=== PATIENT | female | born 1990 | race Caucasian/White ===

== ENCOUNTER 2017-10-29 02:22 | Emergency (ER) | payer OTHER ==
[~2017-10-29] VITALS: Ht 170.2 cm; Wt 80.4 kg
[~2017-10-29 02:22] MED LIST: birth control pill
[2017-10-29] MEDS ORDERED: PRENATAL 19 TA1 EACH PO (02:34)
[2017-10-29] MEDS ORDERED: CALCIUM500 M1 PO (02:34)
[2017-10-29 05:20] VITALS: BP 100/60
== END 2017-10-29 05:20 | disposition home or self-care (01) ==
LOC: ED 02:22
DX: O99.282 Endocrine, nutritional and metabolic diseases complicating pregnancy, second trimester (principal); E86.9 Volume depletion, unspecified; O99.712 Diseases of the skin and subcutaneous tissue complicating pregnancy, second trimester; L55.0 Sunburn of first degree; Z3A.21 21 weeks gestation of pregnancy
CPT/HCPCS: J7030

== ENCOUNTER → 2019-05-21 | Outpatient (CLI) | payer BC ==
[~2019-05-21] VITALS: Ht 170.2 cm; Wt 80.4 kg
[~2019-05-21] MED LIST changes: +CALCIUM500 M1 PO; +PRENATAL 19 TA1 EACH PO; +TESSALON PERLE100 M1 PO; +TYLENOL EXTRA500 M2 PO
[2019-05-21 11:05] VITALS: BP 98/65
[2019-05-21 11:22] LABS: HEMATOCRIT 40.1 % (37.0-47.0); HEMOGLOBIN 12.8 g/dL (12.5-16.0); MEAN PLATELET VOLUME 10.1 fl (7.4-10.4); RED BLOOD COUNT 4.9 M/mm3 (4.10-5.30); RED CELL DISTRIBUTION WIDTH 14.6 % (11.5-14.5); WHITE BLOOD COUNT 4.1 K/mm3 (4.8-10.8)
[2019-05-21 11:31] LABS: ALBUMIN 4.3 g/dL (3.5-5.0); POTASSIUM 3.8 mmol/L (3.5-5.1)
[2019-05-21 11:32] LABS: CALCIUM 8.6 mg/dL (8.3-10.5)
[2019-05-21 11:33] LABS: TOTAL PROTEIN 7.6 g/dL (6.4-8.3)
[2019-05-21 11:35] LABS: TOTAL BILIRUBIN 0.3 mg/dL (0.2-1.2)
[2019-05-21 12:14] VITALS: BP 100/65
--- NOTE | 2019-05-21 12:14 | NUR ---
PT WAS HERE OUTPT FOR IV FLUIDS AND ZOFRAN 4MG OTD. PT DENIES ANY VOMITING OR FEVERS. PAST MEDICAL HX OBTAINED. INT STARTED IN LEFT AC WITH A 20 G. LAB WAS DRAWN BY THIS NURSE WHEN INT WAS STARTED. AFTER NS BOULS COMPLETED, INT WAS REMOVED AND DRESSING APPIED. PT WAS INSTRUCTED TO HOME CARE AND TO HEDIS SPECIALIST MEDICATION AT [facility], PT STATES UNDERSTANDING. PT DISCHARGE TO HOME WITH SPOUSE AT HER SIDE.
== END ==
LOC: AMSURD 10:48
PROVIDERS: Nurse Practitioner Family
DX: Z51.81 Encounter for therapeutic drug level monitoring (principal); Z79.899 Other long term (current) drug therapy
CPT/HCPCS: J7030

== ENCOUNTER 2023-02-04 11:28 | Emergency (ER) | payer OTHER ==
[~2023-02-04] VITALS: Ht 170.2 cm; Wt 81.8 kg
[2023-02-04] MEDS ORDERED: VITAMIN B6100 MG/2.5 PO (11:35)
[2023-02-04] MEDS ORDERED: FEOSOL325 MG PO (11:36)
[2023-02-04] MEDS ORDERED: BENADRYL (11:37)
[2023-02-04] MEDS ORDERED: UNISOM25 MG PO (11:37)
[2023-02-04] MEDS ORDERED: PROMETHAZINE12.5 M5 (11:38)
[2023-02-04 12:20] LABS: HEMATOCRIT 33.3 % (37.0-47.0); HEMOGLOBIN 10.8 g/dL (12.5-16.0); MEAN CELL VOLUME 81 fl (78-100); MEAN CORPUSCULAR HEMOGLOBIN 26 pg (27-31); MEAN CORPUSCULAR HGB CONC 32 g/dL (33-37); MEAN PLATELET VOLUME 10.1 fl (7.4-10.4); PLATELET COUNT 224 K/mm3 (130-400); RED BLOOD COUNT 4.09 M/mm3 (4.10-5.30); RED CELL DISTRIBUTION WIDTH 14.2 % (11.5-14.5); WHITE BLOOD COUNT 8.1 K/mm3 (4.8-10.8)
[2023-02-04 12:27] LABS: ALBUMIN 3.9 g/dL (3.5-5.0); POTASSIUM 3.4 mmol/L (3.5-5.1)
[2023-02-04 12:29] LABS: CALCIUM 8.9 mg/dL (8.3-10.5)
[2023-02-04 12:30] LABS: BAND 3 % (0-10); LYMPHOCYTE 9 % (20-51); MONOCYTE 5 % (3-10); NEUTROPHILS 83 % (42-75); TOTAL PROTEIN 6.5 g/dL (6.4-8.3)
[2023-02-04 12:32] LABS: TOTAL BILIRUBIN 0.5 mg/dL (0.2-1.2)
[2023-02-04 13:06] LABS: URINE COLOR YELLOW
[2023-02-04 13:07] LABS: URINE APPEARANCE CLEAR; URINE BILIRUBIN NEGATIVE (NEGATIVE); URINE BLOOD NEGATIVE (NEGATIVE); URINE GLUCOSE NEGATIVE (NEGATIVE); URINE KETONE NEGATIVE (NEGATIVE); URINE LEUKOCYTE ESTERASE NEGATIVE (NEGATIVE); URINE MUCUS PRESENT (NOT PRESENT); URINE NITRATE NEGATIVE (NEGATIVE); URINE PROTEIN(semi-quant) TRACE (NEGATIVE); URINE UROBILINOGEN NORMAL (NORMAL); URINE WBC 0-1 /hpf (0-3)
[2023-02-04 15:33] VITALS: BP 106/73
== END 2023-02-04 15:30 ==
LOC: ED 11:28
PROVIDERS: Family Medicine
DX: O26.51 Maternal hypotension syndrome, first trimester (principal); O26.811 Pregnancy related exhaustion and fatigue, first trimester; Z28.310 Unvaccinated for COVID-19; Z3A.12 12 weeks gestation of pregnancy
CPT/HCPCS: J7030

== ENCOUNTER 2024-06-12 08:24 | Emergency (ER) | payer OTHER ==
[~2024-06-12] VITALS: Ht 170.2 cm; Wt 77.3 kg
[~2024-06-12 08:24] MED LIST changes: +BENADRYL; +FEOSOL325 MG PO; +PROMETHAZINE12.5 M5; +UNISOM25 MG PO; +VITAMIN B6100 MG/2.5 PO
[2024-06-12] MEDS ORDERED: ALBUTEROL2.5 MG/3 M IH (08:34)
[2024-06-12] MEDS ORDERED: CEFDINIR300 MG PO ×2 (08:34→11:41)
[2024-06-12 09:02] LABS: BASO # 0.03 K/mm3 (0.02-0.10); EOS % 0.9 % (1.0-5.0); HEMOGLOBIN 12.9 g/dL (12.5-16.0); LYMPH# 2.13 K/mm3 (1.50-4.00); MEAN CELL VOLUME 86 fl (78-100); MEAN CORPUSCULAR HEMOGLOBIN 28 pg (27-31); MEAN CORPUSCULAR HGB CONC 32 g/dL (33-37); MEAN PLATELET VOLUME 9.6 fl (7.4-10.4); MONO # 0.67 K/mm3 (0.20-0.80); PLATELET COUNT 280 K/mm3 (130-400); RED BLOOD COUNT 4.66 M/mm3 (4.10-5.30); WHITE BLOOD COUNT 10.7 K/mm3 (4.8-10.8)
[2024-06-12 09:12] LABS: ALBUMIN 4.5 g/dL (3.5-5.0)
[2024-06-12 09:13] LABS: CALCIUM 9.3 mg/dL (8.3-10.5)
[2024-06-12 09:14] LABS: TOTAL PROTEIN 7.6 g/dL (6.4-8.3)
[2024-06-12 09:16] LABS: TOTAL BILIRUBIN 0.6 mg/dL (0.2-1.2)
[2024-06-12] MEDS ORDERED: Ketorolac 30 MG/ML VIAL IV ONE (09:45)
[2024-06-12] MEDS ORDERED: Iohexol 300 - 100 ML VIAL IV ONE (10:04)
[2024-06-12] MEDS ORDERED: PREDNISONE20 MG PO (11:41)
[2024-06-12] MEDS ORDERED: KETOROLAC10 MG PO (11:41)
[2024-06-12] MEDS ORDERED: cefTRIAXone 1 G in Water For Injection,Sterile 10 ML IV ONE (11:45)
[2024-06-12] MEDS ORDERED: methylPREDNISolone Sod Succ 125 MG/2 ML VIAL IV ONE (11:45)
[2024-06-12 11:57] VITALS: BP 128/88
== END 2024-06-12 11:59 | disposition home or self-care (01) ==
LOC: ED 08:24
PROVIDERS: Family Medicine
DX: H66.91 Otitis media, unspecified, right ear (principal); Z88.1 Allergy status to other antibiotic agents
CPT/HCPCS: J0696; J1885; J2919; Q9967